=== PATIENT | male | born 1975 | race Caucasian/White ===

== ENCOUNTER 2023-05-10 18:16 | Emergency (ER) | payer MEDICARE ==
[2023-05-10 18:29] VITALS: RESP 20; TEMP 98
--- NOTE | 2023-05-10 19:02 | ERPHSYRPT ---
- History of Present Illness Source: patient Exam Limitations: no limitations Patient Subjective Stated Complaint: Pt states "On april 20 I stepped off the side of a ramp and landed flat on the bottom of my left foot. I went to a clinic and they told me that I did not break anything and they thought it might be a nerve. I went o a chiropractor and he said I had what looked like shingles on my foot and now there is still a small red spot but it feels like there is so much pressure on my toes and it feels like my toes are cramping downward." Triage Nursing Assessment: Pt presented alert and oriented X 3, skin pwd. Pt ambulates with a limp. PT left foot has slight redness noted to lower leg, no bruising, no swelling and no deformity noted. Method of Injury: twisted Occurred: days ago (20) Quality: aching Lower Extremities Pain: foot: left Hx Tetanus, Diphtheria Vaccination/Date Given: No Hx Influenza Vaccination/Date Given: No Hx Pneumococcal Vaccination/Date Given: No Immunizations Up to Date: No <PAUL ABDI - Last Filed: 05/10/23 18:57> <EMMA WOODY - Last Filed: 05/10/23 19:26> - History of Present Illness Time Seen by Provider: 05/10/23 18:30 Physician History: Patient is a 47-year-old white male who on 20 April injured his left foot he [facility] which showed no fracture he subsequently then divided developed shingles in the left lower extremity. The shingles have pretty much dried up and gone away however he continues to have pain in the left foot. We discussed with him we will lu-ray it at this point and we will if negative encouraged him to obtain a MRI of that foot through his primary care physician. (PAUL ABDI) Allergies/Adverse Reactions: Penicillins Allergy (Mild, Verified 06/01/13 17:33) Hives lamotrigine [From Lamictal] Adverse Reaction (Mild, Verified 06/01/13 17:33) dizziness Home Medications: Lacosamide [Vimpat] 200 mg PO BID 04/11/13 [History] Travel Risk - International Travel Have you traveled outside of the country in past 3 weeks: No - Coronavirus Screening Are you exhibiting any of the following symptoms?: No Close contact with a COVID-19 positive Pt in past 14-21 Days: No - Vaccine Status Have you recieved a Covid-19 vaccination: No <PAUL ABDI - Last Filed: 05/10/23 18:57> - Review of Systems Constitutional: No Fever, No Chills Eyes: No Symptoms Ears, Nose, & Throat: No Symptoms Respiratory: No Cough, No Dyspnea Cardiac: No Chest Pain, No Edema, No Syncope Abdominal/Gastrointestinal: No Abdominal Pain, No Nausea, No Vomiting, No Diarrhea Genitourinary Symptoms: No Dysuria Musculoskeletal: No Back Pain, No Neck Pain Skin: No Rash Neurological: No Dizziness, No Focal Weakness, No Sensory Changes Psychological: No Symptoms Endocrine: No Symptoms All Other Systems: Reviewed and Negative <PAUL ABDI - Last Filed: 05/10/23 18:57> - Past Medical History Pertinent Past Medical History: Yes Neurological History: Seizures Musculoskeletal History: Fractures Other Medical History: [place], ANTIBOTICS FOR TICK BITES - Past Surgical History Past Surgical History: Yes Neuro Surgical History: Other Musculoskeletal: Other Other Surgical History: 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 VIRAL MENNIGITIS CHILD, VAGAL NERVE STIMULATOR,SKIN GRAFT LEFT HAND - Social History Smoking Status: Current every day smoker How long have you smoked: years Exposure to second hand smoke: Yes Drug Use: none Patient Lives Alone: No <PAUL ABDI - Last Filed: 05/10/23 18:57> - Physical Exam General Appearance: alert Eyes, Ears, Nose, Throat Exam: moist mucous membranes Neck Exam: non-tender, supple Cardiovascular/Respiratory Exam: chest non-tender, normal breath sounds, regular rate/rhythm, no respiratory distress Gastrointestinal/Abdominal Exam: non-tender, guarding Back Exam: normal inspection, No vertebral tenderness Hips Exam: bilateral: non-tender, normal inspection, normal range of motion Legs Exam: bilateral leg: non-tender, normal inspection, normal range of motion Knees Exam: bilateral knee: non-tender, normal inspection, normal range of motion Ankle Exam: bilateral ankle: non-tender, normal inspection, normal range of motion Foot Exam: left foot: bone tenderness, limited range of motion, pain Neuro/Tendon Exam: normal sensation, normal motor functions Mental Status Exam: alert, oriented x 3, cooperative Skin Exam: normal color, warm, dry SpO2 Interpretation: normal SpO2: 99 O2 Delivery: Room Air <PAUL ABDI - Last Filed: 05/10/23 18:57> - Nursing Vital Signs Nursing Vital Signs: Initial Vital Signs Temperature 98.0 F 05/10/23 18:23 Pulse Rate 96 H 05/10/23 18:23 Respiratory Rate 20 05/10/23 18:23 Blood Pressure 163/97 05/10/23 18:23 O2 Sat by Pulse Oximetry 99 05/10/23 18:23 Pain Scale Pain Intensity 4 - Course Nursing assessment & vital signs reviewed: Yes <PAUL ABDI - Last Filed: 05/10/23 18:57> Ordered Tests: Active Orders 24 hr Category Date Time Status FOOT (MINIMUM 3 VIEWS) Stat Exams 05/10/23 18:33 Taken - Progress Progress: unchanged <PAUL ABDI Last Filed: 05/10/23 18:57> - Progress Progress: pain not gone completely Counseled pt/family regarding: diagnosis, need for follow-up (for MRI) <EMMA WOODY - Last Filed: 05/10/23 19:26> Medical Desision Making - Risk of complications Minimal Risk: Minimal risk of morbidity <ANNALISEEMMA - Last Filed: 05/10/23 19:26> - Departure Critical Care Time: No <PAUL ABDI - Last Filed: 05/10/23 18:57> - Departure Departure Disposition: Home Critical Care Time: No <BERE WOODYSH - Last Filed: 05/10/23 19:26> - Departure Clinical Impression: Left foot pain Condition: Stable Referrals: SHMUEL OLMOS FNP [Primary Care Provider] - Follow Up with PCP/3 days Instructions: Foot Sprain (DC), Contusion (DC) Additional Instructions: Discharge/Care Plan JOSEKIKEEUSEBIALOBO was seen on 05/10/23 in the Emergency Room. The patient was counseled regarding Diagnosis,Lab results, Imaging studies, need for follow up and when to return to the Emergency Room. Prescriptions given: Discharge Note I have spoken with the patient and/or caregivers. I have explained the patient's condition, diagnosis and treatment plan based on the information available to me at this time. I have answered the patient's and/or caregiver's questions and addressed any concerns. The patient and/or caregivers have as good understanding of the patient's diagnosis, condition and treatment plan as can be expected at this point. The vital signs have been stable. The patient's condition is stable and appropriate for discharge from the emergency department. The patient will pursue further outpatient evaluation with the primary care physician or other designated or consulting physician as outlined in the discharge instructions. The patient and/or caregivers are agreeable to this plan of care and follow-up instructions have been explained in detail. The patient and/or caregivers have received these instruction. The patient/and or caregivers are aware that any significant change in condition or worsening of symptoms should prompt an immediate return to this or the closest emergency department or call 911. LOBO MORA was seen on 05/10/23 n the Emergency Room. At that time you were treated for an emergent condition, during your visit Laboratory, Radiology and/or other procedures may have been ordered. It is very important that you follow-up with your Primary Care Physician SHMUEL OLMOS within the next 24-48 hours to review your Emergency Room visit and the final results of testing that was ordered. Some test results such as Urine Cultures, Blood Cultures, and other cultures if ordered will not be finalized for 24-48 hours. If you do not have a Primary Care Provider please call the medical records department at [phone] ext [phone] to obtain a copy of your results or you may sign into our patient portal to obtain these results by visiting us @ [email or web address] and completing the following steps: 1. Click on the Patient Portal link 2. Click the Patient Self Enrollment Link to complete the enrollment form and entering your 3. Once the enrollment form is completed you will receive an email with a temporary ID and password at the email address you provided. 4. Next choose a user name and password. Your user name must be at least 4 characters long and your password must be at least 4 characters long. 5. Choose a security question from the list and provide your answer to the question. If you already have signed into the Health Portal you may access your Health Care Information 06/05 by the following steps: 1. Login to our website @ [email or web address] 2. Enter your original user name and password. FAQS The [facility] Health Portal is an online tool that contains your Lab Results, Radiology Reports, Visit History, Discharge Instructions and Health Summary Lab and Radiology Results will not be available for 72 hours on the portal. The Portal is a secure site, passwords are encryted and URLs are re-written so they cannot be copied and pasted. You and authorized family members are the only ones who can access your Portal. Also there is a timeout feature that protects your information if you leave the Portal page open. If you have technical difficulty please use the Contact Us link on the page this will allow you to submit any questions you have regarding the Portal or you may contact the Medical Record Department at [phone] ext [phone]. Prescriptions: Naproxen 375 mg [Naprosyn 375 mg] 375 mg PO Q8H #30 tablet
[2023-05-10] MEDS ORDERED: TORAdol 30 mg Injection IM ONE (19:34)
[2023-05-10] MEDS ORDERED: TORAdol 30 mg Injection ONE (19:38)
[2023-05-10 19:44] VITALS: BP 152/93; PULSE 84; O2SAT 96
--- NOTE | 2023-05-10 21:21 | XRAY ---
Indication: Pain following fall. Comparison: 06/01/13. 3 nonweightbearing views left foot again demonstrates normal bones, articulation, and soft tissues.
== END 2023-05-10 19:56 | disposition home or self-care (01) ==
LOC: ED 18:16
DX: M79.672 Pain in left foot (principal); Z79.899 Other long term (current) drug therapy; Z28.310 Unvaccinated for COVID-19; Z72.0 Tobacco use
CPT/HCPCS: 73630; 96372; 99283; J1885

== ENCOUNTER 2023-07-04 20:19 | Emergency (ER) | payer MEDICARE ==
[2023-07-04 20:37] VITALS: BP 175/93; PULSE 88; RESP 18; TEMP 98.3; O2SAT 98
--- NOTE | 2023-07-04 20:56 | ERPHSYRPT ---
- History of Present Illness Source: patient, other () Exam Limitations: no limitations Patient Subjective Stated Complaint: pt c/o L ankle pain that has been ongoing since april, pt has seen primary doctor multiple times and given multiple prescriptions last one being tramadol which patient has finished. pt has been referred to a pain specialist which patient states he does not want to do. Triage Nursing Assessment: pt ambulatory to bed by self with steady gait, at bedside, pt c/o L ankle pain that has been going on since April, +2 pedal pulses bilaterally, no swelling noted to either extremeity. Physician History: 48 yo WM that injured his L ankle/foot in April after falling off a porch presents w continued pain. Pain is 10 on scale and worse w weight bearing. He has been to an orthopedic walk in clinic in [place] and has also seen an orthopod in [place]. Pt denies any new trauma. Method of Injury: fell Occurred: other (2 months ago) Quality: constant Severity of Pain-Max: severe Severity of Pain-Current: severe Lower Extremities Pain: foot: left, ankle: left Modifying Factors: Improves With: movement Associated Symptoms: unable to bear weight Allergies/Adverse Reactions: Penicillins Allergy (Mild, Verified 07/04/23 20:24) Hives lamotrigine [From Lamictal] Adverse Reaction (Mild, Verified 07/04/23 20:24) dizziness Home Medications: Lacosamide [Vimpat] 200 mg PO BID 04/11/13 [History] Divalproex Sodium [Depakote] 500 mg PO BID 07/04/23 [History] Gabapentin 600 mg PO TID 07/04/23 [History] Tizanidine HCl 4 mg PO HS 07/04/23 [History] Hx Tetanus, Diphtheria Vaccination/Date Given: No Hx Influenza Vaccination/Date Given: No Hx Pneumococcal Vaccination/Date Given: No Travel Risk - International Travel Have you traveled outside of the country in past 3 weeks: No - Coronavirus Screening Are you exhibiting any of the following symptoms?: No Close contact with a COVID-19 positive Pt in past 14-21 Days: No - Vaccine Status Have you recieved a Covid-19 vaccination: No - Review of Systems Constitutional: No Symptoms Eyes: No Symptoms Ears, Nose, & Throat: No Symptoms Respiratory: No Symptoms Cardiac: No Symptoms Abdominal/Gastrointestinal: No Symptoms Genitourinary Symptoms: No Symptoms Skin: No Symptoms Neurological: No Symptoms Psychological: No Symptoms Endocrine: No Symptoms Hematologic/Lymphatic: No Symptoms Immunological/Allergic: No Symptoms - Past Medical History Pertinent Past Medical History: Yes Neurological History: Seizures ENT History: No Pertinent History Cardiac History: No Pertinent History Respiratory History: No Pertinent History Endocrine Medical History: No Pertinent History Musculoskeletal History: Fractures GI Medical History: No Pertinent History History: No Pertinent History Psycho-Social History: No Pertinent History Male Reproductive Disorders: No Pertinent History Other Medical History: [place], ANTIBOTICS FOR TICK BITES - Past Surgical History Past Surgical History: Yes Neuro Surgical History: Other Cardiac: No Pertinent History Respiratory: No Pertinent History Gastrointestinal: No Pertinent History Genitourinary: No Pertinent History Musculoskeletal: Other Male Surgical History: No Pertinent History Other Surgical History: 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 VIRAL MENNIGITIS CHILD, VAGAL NERVE STIMULATOR,SKIN GRAFT LEFT HAND - Social History Smoking Status: Current every day smoker How long have you smoked: years Exposure to second hand smoke: Yes Drug Use: none Patient Lives Alone: No - Nursing Vital Signs Nursing Vital Signs: Initial Vital Signs Pulse Rate 77 07/04/23 20:24 Respiratory Rate 18 07/04/23 20:24 Blood Pressure 175/93 07/04/23 20:24 O2 Sat by Pulse Oximetry 95 07/04/23 20:24 Pain Scale Pain Intensity 10 Hypertensive - Physical Exam General Appearance: no apparent distress Eyes, Ears, Nose, Throat Exam: normal ENT inspection Neck Exam: normal inspection Cardiovascular/Respiratory Exam: normal breath sounds, regular rate/rhythm, heart sounds normal Gastrointestinal/Abdominal Exam: non-tender, soft Back Exam: normal inspection, normal range of motion, No vertebral tenderness Hips Exam: bilateral: non-tender, normal inspection, normal range of motion, no evidence of injury Legs Exam: bilateral leg: non-tender, normal inspection, normal range of motion, no evidence of injury Knees Exam: bilateral knee: non-tender, normal inspection, normal range of motion, no evidence of injury Ankle Exam: left ankle: other (TTP laterally and medially/No edema or deformity/Good pedal pulse, distal sensation, and capillary return) Foot Exam: left foot: other (No deformity/No erythema/No ecchymotic areas/TTP dorsally/Good pedal pulse, distal sensation, and capillary return) Neuro/Tendon Exam: normal sensation, normal motor functions, normal tendon functions, responds to pain, no evidence tendon injury, No motor deficit, No sen kim deficit Mental Status Exam: alert, oriented x 3, cooperative Skin Exam: normal color, warm, dry SpO2 Interpretation: normal SpO2: 98 O2 Delivery: Room Air - Course Nursing assessment & vital signs reviewed: Yes - CT Exams Lower Extremity CT Interpretation: Discussed w/radiologist (CT L foot/ankle neg per rad) Ordered Tests: Active Orders 24 hr Category Date Time Status LOWER EXTREMITY WO CONTRAST [CT] Stat Exams 07/04/23 21:09 Taken - Progress Progress: improved Progress Note: 07/04/23 22:07 Nursing note and vital signs reviewed No food or housing insecurities noted Additional history per CT results reviewed and shared w pt/ 30mg IM Toradol Pt w chronic L foot/ankle pain wo acute injury, so recommend that he f/u w Dr. Lovett Counseled pt/family regarding: diagnosis, need for follow-up, rad results Medical Desision Making - Independent Historian Additional History obtained from: Spouse - Diagnostic Testing Radiological Interpretation: Discussed w/ radiologist - Risk of complications Low Risk: Low risk of morbidity from additional dx testing or treatment - Departure Departure Disposition: Home Clinical Impression: Chronic pain in left foot Condition: Stable Critical Care Time: No Referrals: CYNTHIA GURROLA [Primary Care Provider] - Follow up/PCP as directed GALILEO LYNNE DPM [ACTIVE STAFF] - Follow up/PCP as directed Instructions: Ankle Sprain (DC), Foot Sprain (DC) Additional Instructions: Weight bearing as tolerated Follow up with Dr. Lovett Return to ER as needed
[2023-07-04] MEDS ORDERED: TORAdol 30 mg Injection IM ONE (22:05)
[2023-07-04] MEDS ORDERED: TORAdol 30 mg Injection ONE (22:14)
--- NOTE | 2023-07-05 08:53 | XRAY ---
Indication: Chronic pain following fall in April 2023. Multiple contiguous axial images obtained through the left ankle/foot without contrast. Sagittal and coronal reformatted images obtained. Comparison: None Left ankle/foot mortise appears anatomic. Negative for tarsal coalition. Tibial plafond and talar dome appears smooth. No acute fracture or suspicious bony lesions. Visualized noncontrasted soft tissues including Achilles tendon unremarkable. Inversion: Negative CT left ankle/foot.
== END 2023-07-04 22:38 | disposition home or self-care (01) ==
LOC: ED 20:19
DX: G89.29 Other chronic pain (principal); M79.672 Pain in left foot; Z79.899 Other long term (current) drug therapy; Z28.310 Unvaccinated for COVID-19; Z72.0 Tobacco use
CPT/HCPCS: 73700; 96372; 99283; J1885

== ENCOUNTER 2023-10-04 12:38 | Emergency (ER) | payer MEDICARE ==
--- NOTE | 2023-10-04 12:50 | ERPHSYRPT ---
- History of Present Illness Time Seen by Provider: 10/04/23 12:50 Source: patient, family (Patient's spouse provided additional, independent history. She provided additional medical history and description of the events that took place this morning.) Physician History: This is a 48-year-old white male patient who has a history of seizure disorder and a left glass eye. Patient, in addition to 2 other antiseizure medication is taking Depakote. Patient states that he did take his medication this morning. He was in the recliner chair and had a breakthrough seizure this, spilling his hot coffee onto the skin of his left lower abdomen causing first and second- degree nix. He suddenly began having severe abdominal pain as well. He denies chest pain. He denies shortness of breath. Patient has a history of multiple, recurrent breakthrough seizures. His neurologist is aware. Patient also has a intracranial stimulator to help with preventing/diminishing seizure activity. Timing/Duration: today (To moderate) Severity: mild Modifying Factors: Improves With: nothing Associated Symptoms: abdominal pain, seizure, No shortness of breath, No chest pain, No fever Allergies/Adverse Reactions: Penicillins Allergy (Mild, Verified 10/04/23 12:58) Hives lamotrigine [From Lamictal] Adverse Reaction (Mild, Verified 10/04/23 12:58) dizziness Home Medications: Lacosamide [Vimpat] 200 mg PO BID 04/11/13 [History] Divalproex Sodium [Depakote] 500 mg PO BID 07/04/23 [History] Gabapentin 600 mg PO TID 07/04/23 [History] Tizanidine HCl 4 mg PO HS 07/04/23 [History] Hx Tetanus, Diphtheria Vaccination/Date Given: No Hx Influenza Vaccination/Date Given: No Hx Pneumococcal Vaccination/Date Given: No Travel Risk - International Travel Have you traveled outside of the country in past 3 weeks: No - Coronavirus Screening Are you exhibiting any of the following symptoms?: No Close contact with a COVID-19 positive Pt in past 14-21 Days: No - Vaccine Status Have you recieved a Covid-19 vaccination: No - Review of Systems Constitutional: No Symptoms Eyes: No Symptoms Ears, Nose, & Throat: No Symptoms Respiratory: No Symptoms Cardiac: No Symptoms Abdominal/Gastrointestinal: Abdominal Pain (Skin overlying the left lower [place] drant[place] area where he suffered the topical burn) Genitourinary Symptoms: No Symptoms Musculoskeletal: No Symptoms Skin: Other (First and second-degree burn skin of left lower quadrant) Neurological: No Symptoms Psychological: No Symptoms Endocrine: No Symptoms Hematologic/Lymphatic: No Symptoms Immunological/Allergic: No Symptoms All Other Systems: Reviewed and Negative - Past Medical History Pertinent Past Medical History: Yes Neurological History: Seizures ENT History: No Pertinent History Cardiac History: No Pertinent History Respiratory History: No Pertinent History Endocrine Medical History: No Pertinent History Musculoskeletal History: Fractures GI Medical History: No Pertinent History History: No Pertinent History Psycho-Social History: No Pertinent History Male Reproductive Disorders: No Pertinent History Other Medical History: [place], ANTIBOTICS FOR TICK BITES - Past Surgical History Past Surgical History: Yes Neuro Surgical History: Other Cardiac: No Pertinent History Respiratory: No Pertinent History Gastrointestinal: No Pertinent History Genitourinary: No Pertinent History Musculoskeletal: Other Male Surgical History: No Pertinent History Other Surgical History: 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 VIRAL MENNIGITIS CHILD, VAGAL NERVE STIMULATOR,SKIN GRAFT LEFT HAND - Social History Smoking Status: Current every day smoker How long have you smoked: years Exposure to second hand smoke: Yes Drug Use: none Patient Lives Alone: No - Nursing Vital Signs Nursing Vital Signs: Initial Vital Signs Temperature 97.4 F 10/04/23 12:47 Pulse Rate 95 H 10/04/23 12:47 Respiratory Rate 16 10/04/23 12:47 Blood Pressure 177/104 10/04/23 12:47 O2 Sat by Pulse Oximetry 99 10/04/23 12:47 Pain Scale Pain Intensity 5 - Physical Exam General Appearance: no apparent distress, alert, anxiety Eye Exam: PERRL/EOMI, other (Left glass eye) Ears, Nose, Throat Exam: normal ENT inspection (Right I), moist mucous membranes Neck Exam: normal inspection, non-tender, supple, full range of motion Respiratory Exam: normal breath sounds, lungs clear, airway intact, No chest tenderness, No respiratory distress Cardiovascular Exam: regular rate/rhythm, normal heart sounds, normal peripheral pulses Gastrointestinal/Abdomen Exam: soft, normal bowel sounds, tenderness (Of the skin left lower quadrant where the first and second-degree nix are present) Rectal Exam: not done Back Exam: normal inspection, normal range of motion, No CVA tenderness, No vertebral tenderness Extremity Exam: normal inspection, normal range of motion, pelvis stable Neurologic Exam: alert, oriented x 3, cooperative, telemetry tech II-XII nml as tested, no rmal mood/affect, nml cerebellar function, nml station & gait, sensation nml Skin Exam: other (First and second degree burn of skin overlying the left lower quadrant) Lymphatic Exam: No adenopathy SpO2 Interpretation: normal O2 Delivery: Room Air - Course Nursing assessment & vital signs reviewed: Yes Ordered Tests: Active Orders 24 hr Category Date Time Status IV Insertion STAT Care 10/04/23 12:57 Active Wound Care STAT Care 10/04/23 13:05 Active ABDOMEN AND PELVIS W/0 CONTRAS [CT] Stat Exams 10/04/23 13:03 Completed CBC W DIFF Stat Lab 10/04/23 13:04 Completed CMP Stat Lab 10/04/23 13:20 Completed Medication Summary Generic Name Dose Route Start Last Admin Trade Name Freq PRN Reason Stop Dose Admin Bacitracin Zinc 1 gm 10/05/23 10:00 10/04/23 13:31 Bacitracin Zinc 28 Gm Tube TP 11/04/23 09:59 1 gm DAILY LANDON Administration Discontinued Medications Generic Name Dose Route Start Last Admin Trade Name Freq PRN Reason Stop Dose Admin Cephalexin HCl 500 mg 10/04/23 13:05 10/04/23 13:11 Cephalexin Mh500 Mg Capsule PO 10/04/23 13:06 500 mg STAT ONE Administration Cephalexin HCl Confirm 10/04/23 13:08 Cephalexin Mh500 Mg Capsule Administered 10/04/23 13:09 Dose 500 mg .ROUTE .STK-MED ONE Hydromorphone HCl 1 mg 10/04/23 13:02 10/04/23 13:11 Hydromorphone 1 Mg/1ml Inj IV 10/04/23 13:03 1 mg STAT ONE Administration Hydromorphone HCl Confirm 10/04/23 13:08 Hydromorphone 1 Mg/1ml Inj Administered 10/04/23 13:09 Dose 1 mg .ROUTE .STK-MED ONE Ondansetron HCl 4 mg 10/04/23 13:02 10/04/23 13:11 Ondansetron Hcl 4 Mg/2 Ml Vial IV 10/04/23 13:03 4 mg STAT ONE Administration Ondansetron HCl Confirm 10/04/23 13:08 Ondansetron Hcl 4 Mg/2 Ml Vial Administered 10/04/23 13:09 Dose 4 mg .ROUTE .STK-MED ONE Lab/Rad Data: Laboratory Result Diagrams 10/04/23 13:04 10/04/23 13:20 Laboratory Results 10/04/23 10/04/23 10/04/23 Range/Units 13:20 13:20 13:04 WBC 7.0 (4.0-10.5) x10^3/uL RBC 4.90 (4.1-5.6) x10^6/uL Hgb 16.4 (12.5-18.0) g/dL Hct 47.0 (42-50) % MCV 95.9 (78-100) fL MCH 33.5 H (26-32) pg MCHC 34.9 (32-36) g/dL RDW 11.5 (11.5-14.0) % Plt Count 146 L (150-450) x10^3/uL MPV 11.6 H (7.5-11.0) fL Gran % 58.1 (36.0-66.0) % Immature Gran % (Auto) 0.4 (0.00-0.4) % Nucleat RBC Rel Count 0.0 (0.00-0.1) % Eos # (Auto) 0.02 (0-0.5) x10^3/uL Immature Gran # (Auto) 0.03 (0.00-0.03) x10^3u/L Absolute Lymphs (auto) 2.11 (1.0-4.6) x10^3/uL Absolute Monos (auto) 0.67 (0.0-1.3) x10^3/uL Absolute Nucleated RBC 0.00 (0.00-0.01) x10^3u/L Lymphocytes % 30.3 (24.0-44.0) % Monocytes % 9.6 (0.0-12.0) % Eosinophils % 0.3 (0.00-5.0) % Basophils % 1.3 (0.0-0.4) % Absolute Granulocytes 4.04 (1.4-6.9) x10^3/uL Basophils # 0.09 (0-0.4) x10^3/uL Sodium 137 (137-145) mmol/L Potassium 4.7 (3.5-5.1) mmol/L Chloride 102 (98-107) mmol/L Carbon Dioxide 20 L (22-30) mmol/L Anion Gap 19.3 H (5-15) MEQ/L BUN 11 (9-20) mg/dL Creatinine 0.69 (0.66-1.25) mg/dL Estimated GFR 114.9 ML/MIN Glucose 100 (74-106) mg/dL Calcium 9.6 (8.4-10.2) mg/dL Total Bilirubin 0.70 (0.2-1.3) mg/dL AST 40 (17-59) U/L ALT 30 (0-50) U/L Alkaline Phosphatase 75 (38-126) U/L Serum Total Protein 8.3 H (6.3-8.2) g/dL Albumin 5.0 (3.5-5.0) g/dL Valproic Acid 42.4 L (50-100) ug/mL - Progress Progress: improved, pain not gone completely, re-examined Progress Note: 10/04/23 13:15 This patient's medical issue is 1 of moderate complexity. Level complex in the workup performed based on review the patient's past medical history, review patient's medication list, review the patient's drug allergy list, history present illness and physical findings on examination. This workup includes placement of intravenous line, CT scan of the patient's head, CT scan of the abdomen and pelvis, CBC, CMP, Depakote level. Will provide the patient with intravenous Dilaudid and intravenous Zofran. We will also provide the patient with Keflex 500 mg orally 1 capsule now. We will also provide wound care to the burn sites with nonstick bandage, gauze and bacitracin ointment. 10/04/23 14:06 The patient's significant other just informed us that they are refusing the CT scan of the head. We did discuss the importance of this test. However, they refused because he has chronic recurring breakthrough seizures. They are more concerned about the pain in his abdomen. 10/04/23 14:42 I interpreted the results of the laboratory data. Patient's valproic acid level is slightly low at 42 normal low level is 50. We are awaiting the CBC results. CT scan of the abdomen pelvis without contrast was interpreted by the radiologist. I reviewed the impression. Patient has pulmonary emphysema, ar teriosclerotic disease, mild diffuse fecal stasis. The remainder of the CT scan of the abdomen pelvis without contrast is negative. Counseled pt/family regarding: lab results, diagnosis, need for follow-up, rad results Medical Desision Making - Independent Historian Additional History obtained from: Spouse - Diagnostic Testing Diagnostic test were ordered, analyzed, and reviewed by me: Yes Radiological Interpretation: Reviewed by me, Teleradiologist Report - Risk of complications The pt has a mod risk of morbidity or mortality based on: Need for prescription drug management - Departure Departure Disposition: Home Clinical Impression: Superficial burn of abdominal wall, Breakthrough seizure Condition: Stable Critical Care Time: No Referrals: CYNTHIA GURROLA [Primary Care Provider] - Follow up/PCP as directed Additional Instructions: Keep the burn site clean daily with soap and water. Cover with antibiotic ointment of choice and a nonstick gauze. Take your antibiotics and other medications as prescribed. Call your neurologist today to inform them of the episode and to make a follow-up appointment for further evaluation and management. Prescriptions: Hydrocodone/APAP 5/325 [Cyrus 5/325 mg] 1 each PO Q8H PRN PRN #6 tablet MDD 3 PRN Reason: Pain Cephalexin Mh 500 mg [Keflex 500 mg] 500 mg PO TID #21 cap
[2023-10-04 12:58] VITALS: TEMP 97.4
[2023-10-04] MEDS ORDERED: Zofran 4 MG/2 ML VIAL IV ONE (13:02)
[2023-10-04] MEDS ORDERED: Hydromorphone 1 mg/ml Injection IV ONE (13:02)
[2023-10-04] MEDS ORDERED: KEFLEX 500 MG PO ONE (13:05)
[2023-10-04] MEDS ORDERED: KEFLEX 500 MG ONE (13:08)
[2023-10-04] MEDS ORDERED: Zofran 4 MG/2 ML VIAL ONE (13:08)
[2023-10-04] MEDS ORDERED: Hydromorphone 1 mg/ml Injection ONE (13:08)
[2023-10-04 13:24] LABS: Absolute Neutrophil Ct (ANC) 4.04 x10^3/uL (1.4-6.9); BASOPHIL % 1.3 % (0.0-0.4); Basophil (Absolute #) 0.09 x10^3/uL (0-0.4); Eosinophil % 0.3 % (0.00-5.0); Eosinophil (Absolute #) 0.02 x10^3/uL (0-0.5); Hemoglobin 16.4 g/dL (12.5-18.0); IMMATURE GRAN # 0.03 x10^3u/L (0.00-0.03); IMMATURE GRAN % 0.4 % (0.00-0.4); Lymphocyte (Absolute #) 2.11 x10^3/uL (1.0-4.6); Lymphocytes % 30.3 % (24.0-44.0); Mean Cell Volume 95.9 fL (78-100); Mean Corpuscular Hemoglobin 33.5 pg (26-32); Mean Corpuscular Hgb Concent. 34.9 g/dL (32-36); Mean Platelet Volume 11.6 fL (7.5-11.0); Monocyte (Absolute #) 0.67 x10^3/uL (0.0-1.3); Monocytes % 9.6 % (0.0-12.0); Neutrophil % 58.1 % (36.0-66.0); Platelet Count 146 x10^3/uL (150-450); Red Cell Distribution Width 11.5 % (11.5-14.0)
[2023-10-04 13:41] LABS: ANION GAP 19.3 MEQ/L (5-15); BILIRUBIN,TOTAL 0.7 mg/dL (0.2-1.3); Calcium 9.6 mg/dL (8.4-10.2); Creatinine 1 0.69 mg/dL (0.66-1.25); EST GLOMERULAR FILTRATION RATE 114.9 ML/MIN; Potassium 4.7 mmol/L (3.5-5.1); Total Protein 8.3 g/dL (6.3-8.2)
[2023-10-04 13:45] VITALS: BP 170/90
[2023-10-04 14:23] VITALS: PULSE 84; RESP 20; O2SAT 95
--- NOTE | 2023-10-04 14:39 | XRAY ---
Indication: Abdomen pain. Periumbilical pressure. Multiple contiguous axial images obtained through the abdomen and pelvis without contrast. Comparison: None Lung bases clear with mild emphysema. Heart not enlarged. Noncontrasted stomach and bowel loops appear nonobstructed with normal appendix. Mild diffuse scattered colonic fecal debris throughout. No free fluid/air. Remaining liver, gallbladder, pancreas, spleen, adrenal glands, kidneys, ureters, and bladder are unremarkable for noncontrast exam. Mild scattered aortoiliac calcifications without AAA. Osseous structures intact with minimal degenerative changes throughout the spine. No ventral or inguinal hernias. Impression: 1. Pulmonary emphysema, arteriosclerotic disease, and mild diffuse fecal stasis. 2. Remaining CT abdomen/pelvis without contrast exam is negative.
[2023-10-05] MEDS ORDERED: BACIGUENT 30 GM TP SCH (10:00)
== END 2023-10-04 15:18 | disposition home or self-care (01) ==
LOC: ED 12:38
DX: G40.909 Epilepsy, unspecified, not intractable, without status epilepticus (principal); T21.22XA Burn of second degree of abdominal wall, initial encounter; X10.0XXA Contact with hot drinks, initial encounter; R10.9 Unspecified abdominal pain; Z79.891 Long term (current) use of opiate analgesic; Z79.899 Other long term (current) drug therapy; Z28.310 Unvaccinated for COVID-19; Z72.0 Tobacco use
CPT/HCPCS: 36000; 36415; 74176; 80053; 80164; 85025; 96374; 96375; 99283; J1170; J2405; A9270-GY

== ENCOUNTER 2024-04-18 01:53 | Emergency (ER) | payer MEDICARE ==
--- NOTE | 2024-04-18 02:07 | ERPHSYRPT ---
- History of Present Illness Time Seen by Provider: 04/18/24 02:07 Source: patient, family Exam Limitations: no limitations Physician History: This is a 48-year-old white male patient who is right-handed and has a history of seizure disorder and is on Depakote. In addition, he takes Neurontin for peripheral neuropathy and other nerve pain and has a vagal stimulator to help in controlling his seizure disorder. Prior to arrival, the patient was walking around the car and tripped and fell onto his left shoulder. He felt a "pop". 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 Occurred: just prior to arrival Method of Injury: other (Prescription), fell Quality: constant, aching Severity of Pain-Max: moderate Severity of Pain-Current: moderate Extremities Pain Location: shoulder: left, arm: left (Numerous), other: left (Clavicle) Modifying Factors: Improves With: movement Associated Symptoms: none Allergies/Adverse Reactions: Penicillins Allergy (Mild, Verified 10/04/23 12:58) Hives Home Medications: Lacosamide [Vimpat] 200 mg PO BID 04/11/13 [History] Divalproex Sodium [Depakote] 500 mg PO BID 07/04/23 [History] Gabapentin 600 mg PO TID 07/04/23 [History] Tizanidine HCl 4 mg PO HS 07/04/23 [History] Hx Tetanus, Diphtheria Vaccination/Date Given: No Hx Influenza Vaccination/Date Given: No Hx Pneumococcal Vaccination/Date Given: No Travel Risk - International Travel Have you traveled outside of the country in past 3 weeks: No - Emerging Infectious Disease Are you exhibiting symptoms associated with any current EIDs: No - Review of Systems Constitutional: No Symptoms Eyes: No Symptoms Ears, Nose, & Throat: No Symptoms Respiratory: No Symptoms Cardiac: No Symptoms Abdominal/Gastrointestinal: No Symptoms Genitourinary Symptoms: No Symptoms Musculoskeletal: Fall, Injury (Left shoulder, left clavicle and left humerus) Skin: No Symptoms Neurological: No Symptoms Psychological: No Symptoms Endocrine: No Symptoms Hematologic/Lymphatic: No Symptoms Immunological/Allergic: No Symptoms All Other Systems: Reviewed and Negative - Past Medical History Pertinent Past Medical History: Yes Neurological History: Seizures ENT History: No Pertinent History Cardiac History: No Pertinent History Respiratory History: No Pertinent History Endocrine Medical History: No Pertinent History Musculoskeletal History: Fractures GI Medical History: No Pertinent History History: No Pertinent History Psycho-Social History: No Pertinent History Male Reproductive Disorders: No Pertinent History Other Medical History: CHEESH-NA, ANTIBOTICS FOR TICK BITES - Past Surgical History Past Surgical History: Yes Neuro Surgical History: Other Cardiac: No Pertinent History Respiratory: No Pertinent History Gastrointestinal: No Pertinent History Genitourinary: No Pertinent History Musculoskeletal: Other Male Surgical History: No Pertinent History Other Surgical History: 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 VIRAL MENNIGITIS CHILD, VAGAL NERVE STIMULATOR,SKIN GRAFT LEFT HAND - Social History Smoking Status: Current every day smoker How long have you smoked: years Exposure to second hand smoke: Yes Drug Use: none Patient Lives Alone: No - Nursing Vital Signs Nursing Vital Signs: Initial Vital Signs Temperature 98 F 04/18/24 02:32 Pulse Rate 67 04/18/24 02:32 Respiratory Rate 20 04/18/24 02:32 Blood Pressure 171/105 04/18/24 02:32 O2 Sat by Pulse Oximetry 97 04/18/24 02:32 Pain Scale Pain Intensity 8 - Physical Exam General Appearance: no apparent distress, alert, anxiety Eyes, Ears, Nose, Throat Exam: normal ENT inspection, moist mucous membranes Neck Exam: normal inspection, non-tender, supple, full range of motion Cardiovascular/Respiratory Exam: chest non-tender, no respiratory distress Abdominal Exam: non-tender Back Exam: normal inspection, normal range of motion, No CVA tenderness, No vertebral tenderness Shoulder Exam: normal inspection (Shoulder), no evidence of injury (Left shoulder), bone tenderness (Shoulder left shoulder), limited ROM (Left shoulder), soft tissue tenderness (Left shoulder) Elbow/Forearm Exam: normal inspection, non-tender, no evidence of injury, normal ROM Wrist Exam: normal inspection, non-tender, no evidence of injury, normal ROM Hand Exam: normal inspection, non-tender, no evidence of injury, normal ROM Neuro/Tendon Exam: normal sensation, normal motor functions, normal tendon functions Mental Status Exam: alert, oriented x 3, cooperative, other (Patient smells of alcohol but is oriented and cooperative) Skin Exam: normal color, warm, dry SpO2 Interpretation: normal O2 Delivery: Room Air - Course Nursing assessment & vital signs reviewed: Yes Ordered Tests: Active Orders 24 hr Category Date Time Status Sling Application STAT Care 04/18/24 03:49 Active CLAVICLE Stat Exams 04/18/24 02:19 Taken HUMERUS Stat Exams 04/18/24 02:19 Taken SHOULDER Stat Exams 04/18/24 02:19 Taken Medication Summary Discontinued Medications Generic Name Dose Route Start Last Admin Trade Name Vincenzo PRN Reason Stop Dose Admin Ibuprofen 600 mg 04/18/24 03:49 Ibuprofen 600 Mg Tablet PO 04/18/24 03:50 STAT ONE Oxycodone/Acetaminophen 1 tab 04/18/24 03:49 Oxycodone Hcl/Apap 5 Mg/325 Mg Tablet PO 04/18/24 03:50 STAT STA - Progress Progress: improved, pain not gone completely, re-examined Progress Note: 04/18/24 02:21 My medical decision making and the assignment of low complexity to this patient's medical issue today is based on review of the patient's past medical history, review of the patient's medication list, review of patient drug allergy list, history present illness and physical findings on examination. The workup in this patient includes x-ray of the left clavicle, left shoulder and left humerus 04/18/24 02:25 Differential diagnosis includes but is not limited to contusion, acute fracture, acute dislocation 04/18/24 03:54 I interpreted the preliminary report on the patient's x-rays as follows: X-ray of the left clavicle shows no acute fracture or dislocation. X-ray of the left shoulder shows no acute fracture or dislocation. X-ray of left humerus shows no fracture or dislocation. Counseled pt/family regarding: diagnosis, need for follow-up, rad results Medical Desision Making - Independent Historian Additional History obtained from: Spouse - Diagnostic Testing Diagnostic test were ordered, analyzed, and reviewed by me: Yes Radiological Interpretation: Interpreted by me - Departure Departure Disposition: Home Clinical Impression: Fall, Contusion of left shoulder Condition: Stable Critical Care Time: No Referrals: CYNTHIA GURROLA [Primary Care Provider] - Follow up/PCP as directed Additional Instructions: Wear sling for comfort. Ice pack to area 3 times a day for 3 to 4 days. If there are no contraindications, add ibuprofen 600 mg orally 3 times a day for 5 days. Take your prescribed medication. Call your primary care provider on 04/20/2024, to make arranges for follow-up appointment to be reevaluated in the next 3 to 5 days. Beginning this evening, alternate Tylenol 650 mg and ibuprofen 600 mg orally every 4 hours while awake.
[2024-04-18 02:47] VITALS: BP 171/105; PULSE 67; RESP 20; TEMP 98; O2SAT 97
[2024-04-18] MEDS ORDERED: PERCOCET TABLET 5/325MG ONE (04:04)
[2024-04-18] MEDS ORDERED: MOTRIN 600 MG ONE (04:04)
[2024-04-18] MEDS: PERCOCET TABLET 5/325MG PO STA ×2 (04:06→04:08)
[2024-04-18] MEDS: MOTRIN 600 MG PO ONE (04:07)
--- NOTE | 2024-04-18 04:19 | XRAY ---
CLINICAL HISTORY: Fall injury COMPARISON: None. TECHNIQUE: X-ray of left clavicle in AP views FINDINGS: No fracture seen. No articular pathological changes. No lytic or sclerotic bone lesions. No abnormal soft tissue shadows. Left upper lung zone nodule, measuring about 6 mm. IMPRESSION: No fracture or dislocation. DISCLAIMER:A subtle bone abnormality or fracture may not be readily apparent on x-rays, thus clinical correlation and further imaging including follow up CT, MRI, or follow up x-rays are advised as needed. Electronically Signed by: Asher Haji MD. (04/18/2024 04:14:35 EDT)
--- NOTE | 2024-04-18 04:21 | XRAY ---
CLINICAL HISTORY: Fall injury COMPARISON: None. TECHNIQUE: X-ray left humerus 2 views: AP and lateral. FINDINGS: No fracture seen. No articular pathological changes. No lytic or sclerotic bone lesions. No abnormal soft tissue shadows. IMPRESSION: No fracture or dislocation. DISCLAIMER:A subtle bone abnormality or fracture may not be readily apparent on x-rays, thus clinical correlation and further imaging including follow up CT, MRI, or follow up x-rays are advised as needed. Electronically Signed by: Asher Haji MD. (04/18/2024 04:17:16 EDT)
--- NOTE | 2024-04-18 04:21 | XRAY ---
CLINICAL HISTORY: Fall injury COMPARISON: None. TECHNIQUE: X-ray of the left shoulder 3 views: AP internal/external rotation and lateral (Y) views. FINDINGS: No fracture or dislocation. No articular pathological changes. No lytic or sclerotic bone lesions. No abnormal soft tissue shadows. Left upper lung zone nodule, measuring about 6 mm. IMPRESSION: No fracture or dislocation. DISCLAIMER:A subtle bone abnormality or fracture may not be readily apparent on x-rays, thus clinical correlation and further imaging including follow up CT, MRI, or follow up x-rays are advised as needed. Electronically Signed by: Asher Haji MD. (04/18/2024 04:16:09 EDT)
== END 2024-04-18 04:25 | disposition home or self-care (01) ==
LOC: ED 01:53
DX: S40.012A Contusion of left shoulder, initial encounter (principal); W01.0XXA Fall on same level from slipping, tripping and stumbling without subsequent striking against object, initial encounter; Z79.899 Other long term (current) drug therapy; Z72.0 Tobacco use
CPT/HCPCS: 73000; 73030; 73060; 99283; A9270-GY